=== PATIENT | male | born 2000 | race Caucasian/White ===

== ENCOUNTER 2020-05-24 17:04 | Emergency (ER) | payer BC, SELFPAY ==
[2020-05-24 17:08] VITALS: BP 126/84; PULSE 86; RESP 16; TEMP 36.4; O2SAT 97
[2020-05-24 21:10] VITALS: BP 122/84; PULSE 86; RESP 16; O2SAT 100
--- NOTE | 2020-05-25 04:28 | ED_ITS ---
HPI - Skin/Abscess/Foreign Bdy General Chief complaint: Skin/Abscess/Foreign Body Stated complaint: Ingrown Toe Nail, Lt Pinky Toe Time Seen by Provider: 05/24/20 18:08 Source: patient Mode of arrival: Ambulatory History of Present Illness HPI narrative: Otherwise healthy 20-year-old young man presents with concerns of an ingrown toenail left side 5th toe. He notes that when he walks that toe tends to rotate with increased pressure on the lateral aspect of the nail. It bothering him slightly. Related Data Home Medications Medication Instructions Recorded Confirmed No Known Home Medications 05/20/20 05/20/20 Previous Rx's Medication Instructions Recorded mupirocin 2 % topical ointment 1 applic TOPICAL TID 7 Days #30 g 05/20/20 Allergies Allergy/AdvReac Type Severity Reaction Status Date / Time No Known Drug Allergies Allergy Unverified 05/20/20 11:13 Review of Systems Review of Systems Narrative: Pertinent positive and negative findings as per HPI Remainder of review of systems is otherwise unremarkable for Constitutional: Fevers, chills, weakness ENT: No sore throat, neck pain, ear pain CV: Chest pain, palpitations, Respiratory: Cough, wheeze, dyspnea GI: Nausea, vomiting, diarrhea Patient History Medical History Paronychia of fifth toe of left foot Social History Smoking Status: Never smoker Smoking Status: Never smoker Exam Narrative Exam Narrative: General: Alert appropriate in no acute distress Respiratory: Able to speak in full sentences, no obvious respiratory distress Skin: No obvious rashes, warm and dry Neurologic: Grossly intact no obvious asymmetries or abnormalities Psych, appropriate insight and affect, cooperative Extremity: Left small toe has a fissure in the lateral 3rd of the toenail with some nail dystrophy more lateral to that. No erythema or discharge Initial Vital Signs Initial Vital Signs: Vital Signs Temperature 97.6 F 05/24/20 17:08 Pulse Rate 86 05/24/20 17:08 Respiratory Rate 16 05/24/20 17:08 Blood Pressure 126/84 05/24/20 17:08 Pulse Oximetry 97 05/24/20 17:08 Course Vital Signs Vital signs: Vital Signs - 8 hr 05/24/20 21:10 Pulse Rate 86 Respiratory Rate 16 Blood Pressure 122/84 Pulse Oximetry 100 MDM - Skin/Abscess/Foreign Bdy MDM Narrative Medical decision making narrative: Minor nail dystrophy without significant ingrown nail no evidence of infection. Please see discharge instructions. Safe for home discharge Discharge Plan Departure Patient Disposition: Home Clinical Impression: Dystrophic nail Instructions: DI for Ingrown Toenail Activity Restrictions/Additional Instructions: Thank you for coming in today I think that you are completely correct that the way that you are walking on your left 5th toe is causing that toenail to grow in an unusual direction. At this point it is not ingrown and does not need to be removed and you do not need any antibiotics. You can try using some of the [id number] bunion pads and padding that you can find in the drug stores to see if you can create a bit more space inside her shoe so there isn't so much pressure on the edge of the toenail when your walking. I would recommend schedule an appointment with a hydrogen plant operator to see if they have any suggestions for more permanent fix. I wish you the best Prescriptions: No Action No Known Home Medications RF: 0 mupirocin 2 % ointment 1 applic topical TID 7 Days Qty: 30 RF: 0
== END 2020-05-24 21:11 | disposition home or self-care (01) ==
PROVIDERS: Emergency Provider Emergency Medicine
DX: L60.3 Nail dystrophy (principal); L60.0 Ingrowing nail
CPT/HCPCS: 99281

== ENCOUNTER 2020-11-26 22:10 | Emergency (ER) | payer BC, SELFPAY ==
[2020-11-26 22:33] VITALS: BP 137/83; PULSE 65; RESP 18; TEMP 36.8; O2SAT 100; BMI 22.8
--- NOTE | 2020-11-26 22:38 | DI.RAD.S_ITS ---
PROCEDURE: XR FOOT RT MIN 3V INDICATIONS: foot injury TECHNIQUE: 3 views of the foot were acquired. COMPARISON: None. FINDINGS: Bones: No fractures or dislocations. No suspicious bony lesions. Soft tissues: No tibiotalar joint effusion. Achilles tendon appears normal. IMPRESSION: No evidence acute bony abnormality of the right foot. If clinical suspicion and/or symptoms persist, further assessment with repeat plain films, or advanced imaging (e.g., CT, MRI, or bone scan) may be helpful for further assessment. Dictated by: Benedict Young M.D. on 11/27/2020 at 8:48 Approved by: Benedict Young M.D. on 11/27/2020 at 8:48
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
[2020-11-26 23:59] VITALS: BP 136/82; PULSE 78; RESP 16; O2SAT 97
== END 2020-11-27 | disposition home or self-care (01) ==
PROVIDERS: Emergency Provider Emergency Medicine
DX: S93.601A Unspecified sprain of right foot, initial encounter (principal); V28.0XXA Motorcycle driver injured in noncollision transport accident in nontraffic accident, initial encounter
CPT/HCPCS: 73630; 99281; 99283